=== PATIENT | male | born 1990 | race Caucasian/White ===

== ENCOUNTER 2017-04-27 23:29 | Emergency (ER) | payer OTHER ==
[~2017-04-27] VITALS: Ht 188 cm; Wt 75.0 kg
[~2017-04-27 23:29] MED LIST: ANAPROX DS550 M1 PO; BISA-LAX5 MG PO; CELEXA20 MG PO; CITALOPRAM HBR20 MG PO; DEPAKOTE ER500 MG PO; DEPAKOTE500 MG PO; EFFEXOR25 MG PO; HYDROXYZINE HCL25 MG PO; KEFLEX500 MG PO; MOTRIN800 MG PO; NAPROSYN500 MG PO; ZANTAC150 MG PO
[2017-04-28 02:16] VITALS: BP 119/78
== END 2017-04-28 02:20 ==
LOC: EME 23:29
PROC: 0HQFXZZ Repair Right Hand Skin, External Approach (ICD-10-PCS; principal; 2017-04-27)
DX: S61.210A Laceration without foreign body of right index finger without damage to nail, initial encounter (principal); S61.212A Laceration without foreign body of right middle finger without damage to nail, initial encounter; S61.214A Laceration without foreign body of right ring finger without damage to nail, initial encounter; W25.XXXA Contact with sharp glass, initial encounter; S60.221A Contusion of right hand, initial encounter; W22.8XXA Striking against or struck by other objects, initial encounter; F17.200 Nicotine dependence, unspecified, uncomplicated
CPT/HCPCS: 73130; 99281; 99284